=== PATIENT | female | born 1990 | race Caucasian/White ===

== ENCOUNTER → 2016-12-02 | Outpatient (CLI) | payer SELFPAY ==
--- NOTE | 2016-12-02 16:51 | DI ---
Indication: ITS.REASON: R10.2 PELVIC PAIN PROCEDURE: US PELVIC (NON-OB): Encounter: Initial Comparison: None FINDINGS: Transabdominal pelvic imaging was performed. The uterus is retroverted and measures 6.3 x 5 x 4.9 cm. The parenchyma is homogeneous without fibroids. The endometrial stripe measures 10 mm in thickness. There is no evidence of focal endometrial mass. Both ovaries are identified and normal in appearance. The right ovary measures 3.2 x 1.6 x 1.8 cm. The left ovary measures 3.3 x 1.7 x 2.9 cm. There are no abnormal adnexal masses detected. Small amount of free pelvic fluid, probably physiologic. Doppler flow seen to both ovaries. IMPRESSION: Unremarkable pelvic sonogram. .
== END ==
LOC: IMA 15:40
PROVIDERS: ATTEND Nurse Practitioner Family
DX: R10.2 Pelvic and perineal pain (principal)